=== PATIENT | male | born 1985 | race American Indian/Alaskan Native ===

== ENCOUNTER 2018-03-07 12:17 | Emergency (ER) | payer OTHER ==
[2018-03-07 12:25] VITALS: BP 149/86
[2018-03-07] MEDS ORDERED: MOTRIN PO ONE (13:16)
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
== END 2018-03-07 14:07 | disposition home or self-care (01) ==
LOC: ED 12:17
DX: S13.4XXA Sprain of ligaments of cervical spine, initial encounter (principal); S39.012A Strain of muscle, fascia and tendon of lower back, initial encounter; V49.59XA Passenger injured in collision with other motor vehicles in traffic accident, initial encounter; Y93.89 Activity, other specified; Y92.89 Other specified places as the place of occurrence of the external cause; Y99.8 Other external cause status
CPT/HCPCS: 99282

== ENCOUNTER 2018-07-14 10:09 | Emergency (ER) | payer SELFPAY ==
[2018-07-14 10:29] VITALS: BP 171/89
--- NOTE | 2018-07-14 11:27 | Emergency Department Report ---
Chief Complaint: Urogenital-Male Stated Complaint: STD CHECK Time Seen by Provider: 07/14/18 10:58 - HPI History of Present Illness: Patient is a 32-year-old male who is presenting with dysuria and penile discharge. Patient states he has had recent unprotected sex. Patient denies any fevers chills nausea vomiting abdominal pain at this time. - ROS Review of Systems: All other systems are reviewed and are negative - Exam Vital Signs: Vital Signs 07/14/18 10:27 Temperature 98.2 F Pulse Rate 82 Respiratory 18 Rate Blood Pressure 171/89 O2 Sat by Pulse 98 Oximetry Physical Exam: Abdomen soft nontender heart tones are within normal limits lungs clear to auscultation. MSE screening note: Focused history and physical exam performed. Due to findings the following was ordered: ED Medical Decision Making - Medical Decision Making Patient is a now medical emergency at this time. Patient did have a financial screening and opted to not pay the hospital co-pay for nonemergent patients. Patient referred to the health department for treatment for possible STD. ED Disposition for MSE Clinical Impression: Urethritis Disposition: MED SCREENING EXAM-LEFT Is pt being admited?: No Does the pt Need Aspirin: No Condition: Stable Forms: STI Treatment and Prevention
== END 2018-07-14 11:25 | disposition left against medical advice (07) ==
LOC: ED 10:09
DX: N34.2 Other urethritis (principal)
CPT/HCPCS: 99281